=== PATIENT | male | born 1985 | race Caucasian/White ===

== ENCOUNTER 2022-10-26 20:29 | Emergency (ER) | payer MEDICARE, MEDICAID ==
[~2022-10-26] VITALS: Ht 170.1 cm; Wt 63.5 kg
--- NOTE | 2022-10-26 21:00 | ED Psychosocial ---
General Chief Complaint: Psych/Social Disorder Stated Complaint: PSYCH EVAL Source: patient (GIVES SOME BASIC INFORMATION), family (SISTER DOES ALL TALKING FOR PT--SHE TALKS RAPIDLY NON-STOP AT GREATH LENGTH, AND IS VERY ANXIOUS. ) History of Present Illness Date Seen by Provider: Oct 26, 2022 Time Seen by Provider: 20:48 Initial Comments PT ARRIVES VIA POV FROM HOME WITH SISTER, WHO IS HIS CHIEF PILOT/DPOA SISTER STATES "HE NEEDS HIS SHOT--HE'S NOT DUE TO GET IT UNTIL THE , BUT HE NEEDS IT NOW--IT'S WORN OFF--HE GETS IT EVERY 3 TO 6 MONTHS" --STATES HE USED TO GET IT EVERY 3 MONTHS, NOW IT'S EVERY 6 MONTHS"--SISTER HAS NO IDEA WHAT THE NAME OF THE SHOT IS. ?INVEGA? SHE STATES HE HAS SCHIZOPHRENIA, DX IN 2004, AND HAS BEEN "HEARING VOICES" --THIS IS CHRONIC PROBLEM PT INITIALLY DENIED HEARING VOICES, BUT SISTER STATES THAT HE "HEARS VOICES TELLING HIM THINGS THAT AREN'T TRUE" --NO FURTHER ELABORATION SISTER STATES THAT SHE CALLED THE HELP LINE TONIGHT AND THEY TOLD HER TO BRING HIM HERE "SO YOU GUYS COULD GIVE HIM HIS SHOT OR GIVE HIM SOMETHING UNTIL HE CAN GET IN TO SEE HIS DR TOMORROW MORNING" SHE HAS NOT ATTEMPTED TO CONTACT HIS MENTAL HEALTH PROVIDER OR HIS PCP AT ANY TIME TODAY FOR THIS PROBLEM PT IS NOT HAVING ANY SUICIDAL OR HOMICIDAL THOUGHTS NOW OR AT ANY TIME. HE IS NOT HAVING ANY AGGRESSIVE BEHAVIOR OF ANY KIND PT HAS OCD AND WASHES HIS HANDS ALL THE TIME. THIS IS A CHRONIC PROBLEM AND NOT ANY DIFFERENT TONIGHT. PT ONLY TAKES VITAMINS AND MELATONIN AT BEDTIME. NO OTHER CHRONIC MEDICAL PROBLEMS NO HISTORY OF SMOKING/VAPING, ALCOHOL OR DRUG USE. PCP: DR. AGUILAR Allergies and Home Medications Allergies Coded Allergies: No Known Drug Allergies (Unverified , 10/26/22) Patient Home Medication List Home Medication List Reviewed: Yes Review of Systems Constitutional: no symptoms reported EENTM: no symptoms reported Respiratory: no symptoms reported Cardiovascular: no symptoms reported Gastrointestinal: no symptoms reported Genitourinary: no symptoms reported Musculoskeletal: no symptoms reported Skin: no symptoms reported Psychiatric/Neurological: See HPI Past Fxfefit-Fdilam-Balpfv Hx Patient Social History Tobacco Use?: No Smoking Status: Never a Smoker Smokeless Tobacco Frequency: Never a User Use of E-Cig and/or Vaping Bora: Never a User Substance use?: No Alcohol Use?: No Past Medical History Surgery/Hospitalization HX: SCHIZO, OCD, SEIZURES, HEART MURMUR Surgeries: Yes (LYMPH NODE REMOVED FROM LEFT NECK) Tonsillectomy Respiratory: No Cardiac: Yes (MURMUR CHILD. ) Heart Murmur Neurological: Yes (SEIZURES CHILD; ? MILD MR ?) Developmental Disorder Genitourinary: No Gastrointestinal: No Musculoskeletal: No Endocrine: No HEENT: Yes (S/P TONSILLECTOMY) Cancer: No Psychosocial: Yes (OCD; FREQUENT HAND WASHING) Sleep Difficulties, Schizophrenia Integumentary: No Blood Disorders: No Physical Exam Vital Signs - First Documented 10/26/22 20:52 Temp 36.0 Pulse 84 B/P (MAP) 144/88 (106) Pulse Ox 98 O2 Delivery Room Air Capillary Refill : Height, Weight, BMI Height: '" Weight: lbs. oz. 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 ) Appearance/Memory: no memory impairment Behavior/Eye Contact: cooperative, good eye contact, normal speech Thoughts/Hallucinations: other (PT NOT CURRENTLY HAVING ANY HALLUCINATIONS AT THIS TIME) Skin: normal color, warm/dry Progress/Results/Core Measures Results/Orders Lab Results Laboratory Tests Test 10/26/22 20:55 10/26/22 20:59 10/26/22 21:00 Range/Units White Blood Count 11.9 H 4.3-11.0 10^3/uL Red Blood Count 5.09 4.30-5.52 10^6/uL Hemoglobin 15.3 13.3-17.7 g/dL Hematocrit 44 40-54 % Mean Corpuscular Volume 87 80-99 fL Mean Corpuscular Hemoglobin 30 25-34 pg Mean Corpuscular Hemoglobin Concent 35 32-36 g/dL Red Cell Distribution Width 12.0 10.0-14.5 % Platelet Count 224 130-400 10^3/uL Mean Platelet Volume 10.0 9.0-12.2 fL Immature Granulocyte % (Auto) 0 % Neutrophils (%) (Auto) 70 42-75 % Lymphocytes (%) (Auto) 22 12-44 % Monocytes (%) (Auto) 6 0-12 % Eosinophils (%) (Auto) 2 0-10 % Basophils (%) (Auto) 1 0-10 % Neutrophils # (Auto) 8.3 H 1.8-7.8 10^3/uL Lymphocytes # (Auto) 2.6 1.0-4.0 10^3/uL Monocytes # (Auto) 0.8 0.0-1.0 10^3/uL Eosinophils # (Auto) 0.2 0.0-0.3 10^3/uL Basophils # (Auto) 0.1 0.0-0.1 10^3/uL Immature Granulocyte # (Auto) 0.1 0.0-0.1 10^3/uL Sodium Level 136 135-145 MMOL/L Potassium Level 3.1 L 3.6-5.0 MMOL/L Chloride Level 102 98-107 MMOL/L Carbon Dioxide Level 22 21-32 MMOL/L Anion Gap 12 5-14 MMOL/L Blood Urea Nitrogen 8 7-18 MG/DL Creatinine 0.95 0.60-1.30 MG/DL Estimat Glomerular Filtration Rate 105 BUN/Creatinine Ratio 8 Glucose Level 104 70-105 MG/DL Calcium Level 9.0 8.5-10.1 MG/DL Corrected Calcium 8.5-10.1 MG/DL Total Bilirubin 0.6 0.1-1.0 MG/DL Aspartate Amino Transf (AST/SGOT) 12 5-34 U/L Alanine Aminotransferase (ALT/SGPT) 14 0-55 U/L Alkaline Phosphatase 60 40-136 U/L Total Protein 7.2 6.4-8.2 GM/DL Albumin 4.6 H 3.2-4.5 GM/DL Salicylates Level < 5.0 L 5.0-20.0 MG/DL Acetaminophen Level < 10 L 10-30 UG/ML Serum Alcohol < 10 <10 MG/DL Urine Color YELLOW Urine Clarity CLEAR Urine pH 6.0 5-9 Urine Specific [place] <=1.005 1.016-1.022 Urine Protein NEGATIVE NEGATIVE Urine Glucose (UA) NEGATIVE NEGATIVE Urine Ketones NEGATIVE NEGATIVE Urine Nitrite NEGATIVE NEGATIVE Urine Bilirubin NEGATIVE NEGATIVE Urine Urobilinogen 0.2 < = 1.0 MG/DL Urine Leukocyte Esterase NEGATIVE NEGATIVE Urine RBC (Auto) NEGATIVE NEGATIVE Urine RBC NONE /HPF Urine WBC NONE /HPF Urine Squamous Epithelial Cells NONE /HPF Urine Crystals NONE /LPF Urine Bacteria TRACE /HPF Urine Casts NONE /LPF Urine Mucus NEGATIVE /LPF Urine Culture Indicated NO Urine Opiates Screen NEGATIVE NEGATIVE Urine Oxycodone Screen NEGATIVE NEGATIVE Urine Methadone Screen NEGATIVE NEGATIVE Urine Propoxyphene Screen NEGATIVE NEGATIVE Urine Barbiturates Screen NEGATIVE NEGATIVE Ur Tricyclic Antidepressants Screen NEGATIVE NEGATIVE Urine Phencyclidine Screen NEGATIVE NEGATIVE Urine Amphetamines Screen NEGATIVE NEGATIVE Urine Methamphetamines Screen NEGATIVE NEGATIVE Urine Benzodiazepines Screen NEGATIVE NEGATIVE Urine Cocaine Screen NEGATIVE NEGATIVE Urine Cannabinoids Screen NEGATIVE NEGATIVE Influenza Type A (RT-PCR) Not Detected Not Detecte Influenza Type B (RT-PCR) Not Detected Not Detecte SARS-CoV-2 RNA (RT-PCR) Not Detected Not Detecte My Orders Orders - SARA TORRES DO Acetaminophen (10/26/22 20:48) Alcohol (10/26/22 20:48) Cbc With Automated Diff (10/26/22 20:48) Comprehensive Metabolic Panel (10/26/22 20:48) Drug Screen Stat (Urine) (10/26/22 20:48) Salicylate (10/26/22 20:48) Ua Culture If Indicated (10/26/22 20:48) Ekg Tracing (10/26/22 20:48) Covid 19 Inhouse Test (10/26/22 20:48) Influenza A And B By Pcr (10/26/22 20:48) Potassium Chloride (Tablet) (Potassium C (10/26/22 22:00) Olanzapine Orally Dissolve Tab (Olanzapi (10/26/22 22:00) Medications Given in ED Current Medications Medications Dose Ordered Sig/Regine Route Start Time Stop Time Status Last Admin Dose Admin Olanzapine 5 mg ONCE ONCE PO 10/26/22 22:00 10/26/22 22:01 DC 10/26/22 22:03 5 MG Potassium Chloride 20 meq ONCE ONCE PO 10/26/22 22:00 10/26/22 22:01 DC 10/26/22 22:03 20 MEQ Vital Signs/I&O 10/26/22 10/26/22 20:52 22:05 Temp 36.0 Pulse 84 82 B/P (MAP) 144/88 (106) 137/88 Pulse Ox 98 99 O2 Delivery Room Air Room Air Progress Progress Note : Progress Note SUICIDE RISK FACTOR STRATIFICATION PAPERWORK COMPLETED PT IS NOT HAVING ANY SUICIDAL OR HOMICIDAL THOUGHTS OR GESTURES, AND IS NOT HAVING ANY AGGRESSIVE BEHAVIOR. VITALS STABLE LABS: -CBC NORMAL -CMP K 3.1, OTHERWISE NORMAL -SALICYLATES NEGATIVE -ACETAMINOPHEN NEGATIVE -ETOH NEGATIVE -UDS NEGATIVE -UA CLEAR -COVID/FLU NEGATIVE EKG NO STEMI OR ARRHYTHMIA GIVEN: -KCL -ZYPREXA--SISTER STATES HE HAS HAD THAT BEFORE AND HAS NOT HAD ANY PROBLEMS WITH IT. UNEVENTFUL ER STAY DISCUSSED TEST RESULTS, ANTICIPATED COURSE, NEED FOR FOLLOW UP AND RETURN PRECAUTIONS Initial ECG Impression Date: Oct 26, 2022 Initial ECG Impression Time: 21:12 Initial ECG Rate: 73 Initial ECG Rhythm: Normal Sinus Initial ECG Intervals SD 166 QRS 109 QT/QTC 365/391 Initial ECG Impression: Nonspecific Changes Initial ECG Comparisson: No Previous ECG Available Comment INTERPRETED BY ME Departure Impression Primary Impression: Schizophrenia Additional Impressions: Auditory hallucinations Hypokalemia Disposition: 01 HOME, SELF-CARE Condition: Stable Departure-Patient Inst. Decision time for Depature: 21:53 Referrals: SELF,VANESA BURLESON (PCP/Family) Primary Care Physician Patient Instructions: Schizophrenia (DC), High Potassium Diet Add. Discharge Instructions: FOLLOW UP WITH MENTAL HEALTH TOMORROW FOR FURTHER CARE All discharge instructions reviewed with patient and/or family. Voiced understanding. SARA TORRES DO Oct 26, 2022 21:00
[2022-10-26 21:10] LABS: BASOPHILS # (AUTO) 0.1 10^3/uL (0.0-0.1); BASOPHILS % (AUTO) 1 % (0-10); EOSINOPHILS # (AUTO) 0.2 10^3/uL (0.0-0.3); EOSINOPHILS % (AUTO) 2 % (0-10); HEMATOCRIT 44 % (40-54); HEMOGLOBIN 15.3 g/dL (13.3-17.7); LYMPHOCYTES # (AUTO) 2.6 10^3/uL (1.0-4.0); LYMPHOCYTES % (AUTO) 22 % (12-44); MEAN CORPUSCULAR HEMOGLOBIN 30 pg (25-34); MEAN CORPUSCULAR HGB CONC 35 g/dL (32-36); MEAN CORPUSCULAR VOLUME 87 fL (80-99); MONOCYTES # (AUTO) 0.8 10^3/uL (0.0-1.0); MONOCYTES % (AUTO) 6 % (0-12); NEUTROPHILS # (AUTO) 8.3 10^3/uL (1.8-7.8); NEUTROPHILS % (AUTO) 70 % (42-75); PLATELET COUNT 224 10^3/uL (130-400); WHITE BLOOD COUNT 11.9 10^3/uL (4.3-11.0)
[2022-10-26 21:25] LABS: BACTERIA,URINE TRACE /HPF; BILIRUBIN,URINE NEGATIVE (NEGATIVE); CLARITY,URINE CLEAR; COLOR,URINE YELLOW; GLUCOSE, URINE (UA) NEGATIVE (NEGATIVE); KETONES,URINE NEGATIVE (NEGATIVE); LEUKOCYTE ESTERASE ,URINE NEGATIVE (NEGATIVE); NITRITE,URINE NEGATIVE (NEGATIVE); PROTEIN,URINE NEGATIVE (NEGATIVE)
[2022-10-26 21:39] LABS: ALANINE AMINOTRANSFERASE 14 U/L (0-55); ALBUMIN 4.6 GM/DL (3.2-4.5); ALKALINE PHOSPHATASE 60 U/L (40-136); BILIRUBIN,TOTAL 0.6 MG/DL (0.1-1.0); BUN/CREATININE RATIO 8; CARBON DIOXIDE 22 MMOL/L (21-32); CHLORIDE 102 MMOL/L (98-107); CREATININE SERUM 0.95 MG/DL (0.60-1.30); GFR ESTIMATED 105; GLUCOSE 104 MG/DL (70-105); POTASSIUM 3.1 MMOL/L (3.6-5.0); SODIUM 136 MMOL/L (135-145); TOTAL PROTEIN 7.2 GM/DL (6.4-8.2)
[2022-10-26 21:40] LABS: SALICYLATE < 5.0 MG/DL (5.0-20.0)
[2022-10-26 21:42] LABS: ACETAMINOPHEN < 10 UG/ML (10-30)
[2022-10-26 21:45] LABS: AMPHETAMINE SCREEN, URINE NEGATIVE (NEGATIVE); BARBITURATE SCREEN URINE NEGATIVE (NEGATIVE); BENZODIAZEPINES SCREEN URINE NEGATIVE (NEGATIVE); CANNABINOID SCREEN, URINE NEGATIVE (NEGATIVE); COCAINE SCREEN URINE NEGATIVE (NEGATIVE); METHADONE STAT NEGATIVE (NEGATIVE); OPIATE SCREEN URINE NEGATIVE (NEGATIVE); OXYCODONE STAT NEGATIVE (NEGATIVE); PROPOXYPHENE STAT NEGATIVE (NEGATIVE); TRICYCLIC ANTIDEPRESSANTS SCRE NEGATIVE (NEGATIVE)
[2022-10-26] MEDS ORDERED: OLANZapine 5 MG ODT TABLET PO ONE (22:00)
[2022-10-26] MEDS ORDERED: POTASSIUM CHLORIDE 10 MEQ TABLET PO ONE (22:00)
[2022-10-26 22:05] VITALS: BP 137/88
== END 2022-10-26 22:06 | disposition home or self-care (01) ==
LOC: EDUNIT# 20:29 → ER 20:32
DX: F20.9 Schizophrenia, unspecified (principal); E87.6 Hypokalemia; Z79.899 Other long term (current) drug therapy; Z20.822 Contact with and (suspected) exposure to COVID-19
CPT/HCPCS: 80053; 80306; 81000; 85025; 87636; 93005; 99283; G0480 ×3; 36415; 80320; 80329

== ENCOUNTER 2022-11-01 09:10 | Emergency (ER) | payer MEDICARE, MEDICAID ==
[2022-11-01 10:49] LABS: BACTERIA,URINE NEGATIVE /HPF; BILIRUBIN,URINE NEGATIVE (NEGATIVE); CLARITY,URINE CLEAR; COLOR,URINE YELLOW; GLUCOSE, URINE (UA) NEGATIVE (NEGATIVE); KETONES,URINE NEGATIVE (NEGATIVE); LEUKOCYTE ESTERASE ,URINE NEGATIVE (NEGATIVE); NITRITE,URINE NEGATIVE (NEGATIVE); PROTEIN,URINE NEGATIVE (NEGATIVE)
[2022-11-01 11:35] LABS: BASOPHILS # (AUTO) 0.1 10^3/uL (0.0-0.1); BASOPHILS % (AUTO) 1 % (0-10); EOSINOPHILS # (AUTO) 0.2 10^3/uL (0.0-0.3); EOSINOPHILS % (AUTO) 2 % (0-10); HEMATOCRIT 45 % (40-54); HEMOGLOBIN 15.4 g/dL (13.3-17.7); LYMPHOCYTES # (AUTO) 1.7 10^3/uL (1.0-4.0); LYMPHOCYTES % (AUTO) 16 % (12-44); MEAN CORPUSCULAR HEMOGLOBIN 30 pg (25-34); MEAN CORPUSCULAR HGB CONC 34 g/dL (32-36); MEAN CORPUSCULAR VOLUME 88 fL (80-99); MEAN PLATELET VOLUME 9.9 fL (9.0-12.2); MONOCYTES # (AUTO) 0.5 10^3/uL (0.0-1.0); MONOCYTES % (AUTO) 4 % (0-12); NEUTROPHILS # (AUTO) 8.5 10^3/uL (1.8-7.8); NEUTROPHILS % (AUTO) 77 % (42-75); PLATELET COUNT 189 10^3/uL (130-400)
[2022-11-01 11:47] LABS: POTASSIUM 3.6 MMOL/L (3.6-5.0)
[2022-11-01 11:53] LABS: CREATININE SERUM 0.92 MG/DL (0.60-1.30)
[2022-11-01 11:55] LABS: MAGNESIUM 1.6 MG/DL (1.6-2.4)
--- NOTE | 2022-11-01 12:27 | ED Psychosocial ---
General Chief Complaint: Psych/Social Disorder Stated Complaint: SCHIZOPHRENIA Nursing Triage Note: PT AMB TO RM 8 WITH SISTER/CAREGIVER WITH C/O INCREASED ANXIETY AND PARANOIA. PT RECENTLY GIVEN ZYPREXA AND INVEGA INJECTION, BUT FAMILY STATES IT IS NOT WORKING. CC SENT TO BE EVALUATED Source: patient, family Exam Limitations: no limitations History of Present Illness Date Seen by Provider: Nov 01, 2022 Time Seen by Provider: 10:10 Initial Comments This 36-year-old gentleman presents to the emergency room accompanied by his sister, Mira, who is a housemate and caregiver for him. They were directed to the emergency room by nursing staff at [facility]. He is a patient of Poppy who is his psychiatric prescriber. He has a follow-up appointment there on November 08. Patient reportedly has been exhibiting increased delusions and paranoia as with agitation in recent weeks. He had been receiving 3-month Invega injections which were changed to 6-month injections. This seemed to be less effective for him. He therefore received his next inje ction early as a 3-month injection on SundayOctober 27. He was subsequently seen in the emergency room. Zyprexa was initiated at 10 mg in the evening. This does not seem to be controlling his symptoms. Patient seems to believe his problem is more anxiety related. His sister is more concerned about paranoid delusions. It appears that anxiety and paranoid delusions are exacerbating each other. Patient seems to have some delusions regarding his mother and her activities. He has angry outburst toward her. He has on occasion raised his fist to her but has never attempted to strike her. This morning he had another episode of severe agitation. Mira attempted to take Luis Manuel to [facility]. She believed he was trying to open the car door while she was driving and would have attempted to elope from the moving vehicle had the child safety locks not been in place. Patient does not believe he would have actually exited the vehicle. Mira reports that he has been perseverating about a co nspiracy with the [employer] workers. He now will not enter the gas station where he previously enjoyed purchasing [employer] tickets. Patient also has a "spider bite" on the face for which he has been prescribed medications at the walk-in clinic. Notes and work-up from his recent ER visit were reviewed by me. Mira reports feeling quite exhausted from dealing with his recent psychiatric exacerbations and is needing prompt help. Allergies and Home Medications Allergies Coded Allergies: No Known Drug Allergies (Unverified , 10/26/22) Patient Home Medication List Home Medication List Reviewed: Yes Review of Systems Constitutional: no symptoms reported EENTM: see HPI Respiratory: no symptoms reported Cardiovascular: no symptoms reported Gastrointestinal: no symptoms reported Genitourinary: no symptoms reported Musculoskeletal: no symptoms reported Skin: see HPI Psychiatric/Neurological: See HPI Past Gqublhf-Vuuebq-Tslqak Hx Patient Social History Tobacco Use?: No Use of E-Cig and/or Vaping dev: No Substance use?: No Alcohol Use?: No Pt feels they are or have been: No Past Medical History Surgery/Hospitalization HX: SCHIZO, OCD, SEIZURES, HEART MURMUR TONSILS Surgeries: Yes (LYMPH NODE REMOVED FROM LEFT NECK) Tonsillectomy Respiratory: No Cardiac: Yes (MURMUR CHILD. ) Heart Murmur Neurological: Yes (SEIZURES CHILD; ? MILD MR ?) Developmental Disorder Genitourinary: No Gastrointestinal: No Musculoskeletal: No Endocrine: No HEENT: Yes (S/P TONSILLECTOMY) Cancer: No Psychosocial: Yes (OCD; FREQUENT HAND WASHING) Sleep Difficulties, Schizophrenia (With paranoia and delusions causing agitation) Integumentary: No Blood Disorders: No Physical Exam Vital Signs - First Documented 11/01/22 09:33 Temp 36.0 Pulse 92 Resp 18 B/P (MAP) 135/94 (108) Pulse Ox 99 O2 Delivery Room Air Capillary Refill : Height, Weight, BMI Height: '" Weight: lbs. oz. 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, alert, oriented x 3 Appearance/Memory: appropriate appearance, other (Insight is fair but he seems to minimize his sister's concerns) Behavior/Eye Contact: cooperative, good eye contact, other (Stuttering speech, no expressed anger or agitation at this time) Thoughts/Hallucinations: other (Denies current hallucinations) Skin: normal color, warm/dry BARS Assessment: 4-Calm/No Agitation Progress/Results/Core Measures Results/Orders Lab Results Laboratory Tests Test 11/01/22 10:27 11/01/22 11:27 Range/Units Urine Color YELLOW Urine Clarity CLEAR Urine pH 6.0 5-9 Urine Specific [place] >=1.030 1.016-1.022 Urine Protein NEGATIVE NEGATIVE Urine Glucose (UA) NEGATIVE NEGATIVE Urine Ketones NEGATIVE NEGATIVE Urine Nitrite NEGATIVE NEGATIVE Urine Bilirubin NEGATIVE NEGATIVE Urine Urobilinogen 0.2 < = 1.0 MG/DL Urine Leukocyte Esterase NEGATIVE NEGATIVE Urine RBC (Auto) NEGATIVE NEGATIVE Urine RBC NONE /HPF Urine WBC NONE /HPF Urine Squamous Epithelial Cells NONE /HPF Urine Crystals NONE /LPF Urine Bacteria NEGATIVE /HPF Urine Casts NONE /LPF Urine Mucus NEGATIVE /LPF Urine Culture Indicated NO White Blood Count 11.0 4.3-11.0 10^3/uL Red Blood Count 5.14 4.30-5.52 10^6/uL Hemoglobin 15.4 13.3-17.7 g/dL Hematocrit 45 40-54 % Mean Corpuscular Volume 88 80-99 fL Mean Corpuscular Hemoglobin 30 25-34 pg Mean Corpuscular Hemoglobin Concent 34 32-36 g/dL Red Cell Distribution Width 12.4 10.0-14.5 % Platelet Count 189 130-400 10^3/uL Mean Platelet Volume 9.9 9.0-12.2 fL Immature Granulocyte % (Auto) 0 % Neutrophils (%) (Auto) 77 H 42-75 % Lymphocytes (%) (Auto) 16 12-44 % Monocytes (%) (Auto) 4 0-12 % Eosinophils (%) (Auto) 2 0-10 % Basophils (%) (Auto) 1 0-10 % Neutrophils # (Auto) 8.5 H 1.8-7.8 10^3/uL Lymphocytes # (Auto) 1.7 1.0-4.0 10^3/uL Monocytes # (Auto) 0.5 0.0-1.0 10^3/uL Eosinophils # (Auto) 0.2 0.0-0.3 10^3/uL Basophils # (Auto) 0.1 0.0-0.1 10^3/uL Immature Granulocyte # (Auto) 0.0 0.0-0.1 10^3/uL Sodium Level 139 135-145 MMOL/L Potassium Level 3.6 3.6-5.0 MMOL/L Chloride Level 105 98-107 MMOL/L Carbon Dioxide Level 23 21-32 MMOL/L Anion Gap 11 5-14 MMOL/L Blood Urea Nitrogen 8 7-18 MG/DL Creatinine 0.92 0.60-1.30 MG/DL Estimat Glomerular Filtration Rate 109 BUN/Creatinine Ratio 9 Glucose Level 95 70-105 MG/DL Calcium Level 9.0 8.5-10.1 MG/DL Magnesium Level 1.6 1.6-2.4 MG/DL My Orders Orders - KIRK CORTEZ MD Ua Culture If Indicated (11/01/22 10:10) Cbc With Automated Diff (11/01/22 10:49) Basic Metabolic Panel (11/01/22 11:21) Magnesium (11/01/22 11:21) Vital Signs/I&O Blood Pressure Mean: 108 Progress Progress Note : Progress Note After thorough review of patient's chart and extensive interview with patient and his sister as well as phone consultation with Poppy, I believe patient would be best served by a prompt clinic visit with medication adjustment. I have recommended to Poppy and the patient that anxiety be treated in addition to the psychotic features of schizophrenia. Neither patient nor his sister seem to believe he is a serious threat to himself or others at this time. Mira does not believe Phani would actually harm anyone during his fits of rage. The outpatient clinic visit for medication adjustment seems to be the most efficient and appropriate means of managing his situation. WithPoppy's approval, patient was directed back to the Mental Health clinic for medication adjustment. Departure Impression Primary Impression: Paranoia Additional Impressions: Agitation Anxiety Disposition: 01 HOME, SELF-CARE Condition: Stable Departure-Patient Inst. Decision time for Depature: 12:26 Referrals: VANESA AGUILAR MD (PCP/Family) Primary Care Physician Patient Instructions: Anxiety, Adult ED, Schizophrenia Add. Discharge Instructions: Return to [facility] for a medication adjustment with Poppy. Discuss additional ways to help manage the paranoia, anxiety, and agitation. Return to an emergency room or call the crisis line at [phone] or [phone] if there are worsening symptoms, especially if there is concern about harming self or others. All discharge instructions reviewed with patient and/or family. Voiced understanding. Copy Copies To 1: SELF,KIRK SOMMERS MD, MD Nov 01, 2022 12:27
[2022-11-01 12:36] VITALS: BP 130/84
== END 2022-11-01 12:36 | disposition home or self-care (01) ==
LOC: EDUNIT# 09:10 → ER 09:12
DX: F22 Delusional disorders (principal); F41.9 Anxiety disorder, unspecified
CPT/HCPCS: 36415; 80048; 81000; 83735; 85025